=== PATIENT | male | born 1970 | race Caucasian/White ===

== ENCOUNTER 2017-03-22 18:45 | Inpatient (IN) | payer OTHER ==
[~2017-03-22] VITALS: Ht 185.4 cm; Wt 85.6 kg
[2017-03-22 18:51] VITALS: BP 157/87; PULSE 74; RESP 18; TEMP 98.7; O2SAT 97
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
[2017-03-22 19:38] VITALS: BP 122/70; PULSE 68; RESP 18; O2SAT 98
[2017-03-22] MEDS ORDERED: ONDANSETRON HCL 4 MG/2 ML VIAL IV PUSH ONE (20:00)
[2017-03-22] MEDS ORDERED: SODIUM CHLOR 0.9% 1000 ML INJ 1,000 ML IV ONE (20:00)
[2017-03-22] MEDS ORDERED: MORPHINE SULFATE 4 MG/ML INJ IV PUSH ONE (20:00)
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
[2017-03-22 20:24] LABS: AUTOMATED NEUTROPHIL # 14.6 TH/MM3 (1.8-7.7); BASOPHIL % 0.1 % (0.0-2.0); EOSINOPHIL # 0.1 TH/MM3 (0-0.4); EOSINOPHIL % 0.7 % (0.0-4.0); HEMATOCRIT 48.2 % (39.0-51.0); HEMOGLOBIN 16.4 GM/DL (13.0-17.0); LYMPH % 7.5 % (9.0-44.0); LYMPHOCYTE # 1.2 TH/MM3 (1.0-4.8); MEAN CELL VOLUME 92.9 FL (80.0-100.0); MEAN CORPUSCULAR HEMOGLOBIN 31.6 PG (27.0-34.0); MEAN CORPUSCULAR HGB CONC 34.1 % (32.0-36.0); MEAN PLATELET VOLUME 9.4 FL (7.0-11.0); MONO % 4.3 % (0.0-8.0); MONOCYTE # 0.7 TH/MM3 (0-0.9); NEUT % 87.4 % (16.0-70.0); PLATELET COUNT 178 TH/MM3 (150-450); RED BLOOD COUNT 5.19 MIL/MM3 (4.50-5.90); RED CELL DISTRIBUTION WIDTH 12.9 % (11.6-17.2); WHITE BLOOD COUNT 16.6 TH/MM3 (4.0-11.0)
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
[2017-03-22] MEDS ORDERED: IOHEXOL 350 MG/ML 10 ML VIAL (for RAD DIAG) IVCONTRAST ONE (20:40)
[2017-03-22 20:42] LABS: BICARBONATE 28.6 MEQ/L (21.0-32.0); CALCIUM 9.8 MG/DL (8.5-10.1); CREATININE 1.48 MG/DL (0.60-1.30)
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
[2017-03-22 21:08] VITALS: BP 131/84; PULSE 74; RESP 18; O2SAT 100
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
[2017-03-22] MEDS ORDERED: SODIUM CHLOR 0.9% 1000 ML INJ 1,000 ML IV SCH (21:21)
[2017-03-22] MEDS ORDERED: MORPHINE SULFATE 4 MG/ML INJ IV PUSH PRN (21:30)
[2017-03-22] MEDS ORDERED: ACETAMINOPHEN 500 MG CPLT PO PRN (21:30)
[2017-03-22] MEDS ORDERED: SODIUM CHLORIDE 0.9% FLUSH 10 ML FLUSH IV FLUSH PRN ×2 (21:30→22:00)
[2017-03-22] MEDS ORDERED: ACETAMINOPHEN/HYDROcodone 325 MG/7.5 MG TAB PO PRN (21:30)
[2017-03-22] MEDS ORDERED: ONDANSETRON HCL 4 MG/2 ML VIAL IV PUSH PRN ×2 (21:30→22:00)
[2017-03-22] MEDS ORDERED: NALOXONE HCL 0.4 MG/ML AMP IV PUSH PRN (22:00)
[2017-03-22] MEDS: SODIUM CHLOR 0.9% 1000 ML INJ 1,000 ML IV SCH (22:00)
[2017-03-22] MEDS ORDERED: MORPHINE SULFATE 2 MG/ML INJ IV PUSH PRN (22:00)
[2017-03-22] MEDS ORDERED: PANTOPRAZOLE SOD 40 MG DELAYED RELEASE TAB PO SCH (22:00)
[2017-03-22] MEDS ORDERED: Post-op Orders (for Pharmacy) XX ONE (22:00)
[2017-03-22] MEDS: METHOCARBAMOL 500 MG TAB PO SCH (22:24)
[2017-03-22 23:27] VITALS: BP 132/69; PULSE 82; RESP 18; O2SAT 100
[2017-03-23] MEDS: oxyCODONE/ACETAMINOPHEN 5 MG/325 MG TAB PO PRN ×2 (00:44→05:29)
[2017-03-23 00:50] VITALS: PULSE 66
[2017-03-23 01:00] VITALS: BP 120/64; PULSE 73; RESP 18; TEMP 98; O2SAT 97
[2017-03-23 04:00] VITALS: PULSE 57
[2017-03-23 04:28] LABS: AUTOMATED NEUTROPHIL # 6.5 TH/MM3 (1.8-7.7); BASOPHIL % 0.3 % (0.0-2.0); EOSINOPHIL # 0.1 TH/MM3 (0-0.4); EOSINOPHIL % 0.9 % (0.0-4.0); HEMATOCRIT 35.9 % (39.0-51.0); HEMOGLOBIN 12.6 GM/DL (13.0-17.0); LYMPH % 14.3 % (9.0-44.0); LYMPHOCYTE # 1.2 TH/MM3 (1.0-4.8); MEAN CELL VOLUME 91.3 FL (80.0-100.0); MONO % 8.2 % (0.0-8.0); MONOCYTE # 0.7 TH/MM3 (0-0.9); NEUT % 76.3 % (16.0-70.0); PLATELET COUNT 172 TH/MM3 (150-450); RED BLOOD COUNT 3.93 MIL/MM3 (4.50-5.90); RED CELL DISTRIBUTION WIDTH 13.3 % (11.6-17.2); WHITE BLOOD COUNT 8.6 TH/MM3 (4.0-11.0)
[2017-03-23 04:50] VITALS: BP 126/66; PULSE 62; RESP 18; TEMP 97.5; O2SAT 96
[2017-03-23] MEDS: METHOCARBAMOL 500 MG TAB PO SCH (05:29)
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
[2017-03-23 08:00] VITALS: BP 112/57; PULSE 60; RESP 18; TEMP 97.5; O2SAT 97
[2017-03-23] MEDS ORDERED: RESP: ALBUTEROL 2.5 MG/IPRATROPIUM 0.5 MG NEB (PRN) INH (08:00)
[2017-03-23] MEDS ORDERED: oxyCODONE/ACETAMINOPHEN 10 MG/325 MG TAB PO PRN (08:00)
[2017-03-23] MEDS: SODIUM CHLOR 0.9% 1000 ML INJ 1,000 ML IV SCH (08:00)
[2017-03-23] MEDS ORDERED: MAGNESIUM HYDROXIDE SUSP 30 ML CUP PO SCH (09:00)
[2017-03-23] MEDS ORDERED: DOCUSATE SODIUM 100 MG CAP PO SCH (09:00)
[2017-03-23] MEDS ORDERED: SODIUM CHLORIDE 0.9% FLUSH 10 ML FLUSH IV FLUSH SCH ×2 (09:00)
[2017-03-23] MEDS ORDERED: LIDOCAINE HCL 5% PATCH T-DERMAL SCH (09:00)
[2017-03-23] MEDS ORDERED: RESP: ALBUTEROL 2.5 MG/IPRATROPIUM 0.5 MG NEB (SCH) INH (10:00)
[2017-03-23] MEDS ORDERED: MAGN30S PO (11:53)
[2017-03-23] MEDS ORDERED: IBUP-232 PO (11:53)
[2017-03-23] MEDS ORDERED: OXYC1TAB63 PO (11:53)
[2017-03-23] MEDS ORDERED: LIDO1ADH4 T-DERMAL (11:53)
[2017-03-23] MEDS ORDERED: DOCU1CAP39 PO (11:53)
[2017-03-23] MEDS ORDERED: METH500T3 PO (11:53)
[2017-03-23 12:00] VITALS: BP 124/56; PULSE 59; RESP 17; TEMP 97.9; O2SAT 96
[2017-03-23] MEDS: KETOROLAC TROMETHAMINE 30 MG/ML (IVP) VIAL IV PUSH SCH ×2 (12:00→12:05)
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
== END 2017-03-23 13:13 | disposition home or self-care (01) | DRG 200 ==
LOC: NEPE 18:45 → NEDA 21:21 → N06A 03-23 00:22
PROVIDERS: ADMIT Surgery; ATTEND Surgery
DX: S27.0XXA Traumatic pneumothorax, initial encounter (principal); S22.42XA Multiple fractures of ribs, left side, initial encounter for closed fracture; S42.102A Fracture of unspecified part of scapula, left shoulder, initial encounter for closed fracture; K57.30 Diverticulosis of large intestine without perforation or abscess without bleeding; T79.7XXA Traumatic subcutaneous emphysema, initial encounter; M41.84 Other forms of scoliosis, thoracic region; V19.9XXA Pedal cyclist (driver) (passenger) injured in unspecified traffic accident, initial encounter; Y93.55 Activity, bike riding
CPT/HCPCS: 71045; 71260; 72050; 73030; 73502; 74177; 80048; 85025; 94150; 94667; 96361; 96374; 96375; J1885; J2270; J2405; J7030; Q9967